=== PATIENT | male | born 1975 | race Caucasian/White ===

== ENCOUNTER 2020-07-20 14:16 | Emergency (ER) | payer OTHER, SELFPAY ==
[2020-07-20 15:03] VITALS: BP 128/70; PULSE 83; RESP 20; TEMP 36.4; O2SAT 96
--- NOTE | 2020-07-20 15:04 | ED.SKABFB ---
HPI - Skin/Abscess/Foreign Bdy General Chief complaint: Skin/Abscess/Foreign Body Stated complaint: lump on L upper leg Time Seen by Provider: 07/20/20 14:22 Source: patient History of Present Illness HPI narrative: this is a 44-year-old gentleman that presents with abscess to the left groin area with an area of erythema surrounding the area is fluctuant tender has had some drainage from the sites with some no history of diabetes no injury is up-to-date with his tetanus with no fever chills no chest pain no shortness of breath. complaint: abscess/boil Onset (ago): day(s) Tetanus up to date: yes Location: LUE ( left hip area) Severity: moderate Severity scale (1-10): 3 Pain Consistency: intermittent Relieving factors: none Exacerbating factors: none Related Data Allergies Allergy/AdvReac Type Severity Reaction Status Date / Time No Known Allergies Allergy Verified 03/26/19 15:58 Review of Systems Review of Systems: All systems reviewed & are unremarkable except as noted in HPI and below PMFSH Past Medical History Medical History Patient denies medical problems Surgical History Surgical History H/O shoulder surgery History of carpal tunnel surgery of right wrist Ulnar nerve abnormality Social History Social History Smoking status: Current every day smoker Alcohol intake: current Substance use: never Gender identity (if verbalized by the patient): Male Exam Const: General: no acute distress Orientation/consciousness: patient oriented x3 HENMT: Head: normal to inspection Eyes: Conjunctivae: conjunctivae normal Pupils: Equal, round and reactive pupils present Direct Ophthalmoscopy: no photophobia Neck: Neck: normal visual inspection Chest: Chest palpation & inspection: normal inspection of the chest Resp: Effort & Inspection: normal respiratory effort Auscultation: clear to auscultation bilaterally Cardio: Rate: regular rate GI: GI Palp: Yes Soft to palpation Skin: Other: fluctuant area upper left thigh anterior 3cm in diameter with an area of erythema Neuro: General: patient oriented x3 and moves all extremities Course Course Emergency Course: area was prepped with Betadine 1% lidocaine administered 11 blade scalpel was used to drain abscess material culture was taken patient was given 1 g IM ceftriaxone is up-to-date with his tetanus vaccine. Procedures Abscess I/D upper extremity: Date of Incision: 07/20/20 Time of Incision: 15:09 Side (if applicable): left Sedation/analgesia: none Local Anesthetic: lidocaine 1% Amount of anesthesia used (mL): 3 Technique: incised with #11 blade Amount of fluid expressed (mL): 5 Irrigation: Yes Packing used?: iodoform I&D Results: Pus and Blood Complications: bleeding Critical Care Time Critical Care Time Critical Care Time: No Discharge Plan Discharge Clinical Impression: Cellulitis Qualifiers: Site of cellulitis: extremity Site of cellulitis of extremity: upper extremity Laterality: left Qualified Code(s): L03.114 - Cellulitis of left upper limb Abscess of skin or subcutaneous tissue Qualifiers: Site of cutaneous abscess: extremity Site of cutaneous abscess of extremity: lower extremity Laterality: left Qualified Code(s): L02.416 - Cutaneous abscess of left lower limb Patient Disposition: Home, Self-Care Condition: Stable Instructions: Antibiotic Form, Cellulitis (ED), Abscess (ED) Additional Instructions: The abscess was some incised and drained and rib in with antibiotic placed and advised to remove after a 24 hours, take medicine as prescribed and follow-up with primary care physician if symptoms persist or worsen. Prescriptions: New amoxicillin-pot clavulanate [Augmentin] 500-1
[2020-07-20] MEDS: cefTRIAXone 1 GM VIAL IM (15:15)
[2020-07-20 15:39] VITALS: BP 124/72; PULSE 80; RESP 20; TEMP 36.7; O2SAT 97
== END 2020-07-20 15:45 | disposition home or self-care (01) ==
PROVIDERS: Emergency Provider Emergency Medicine
DX: L03.114 Cellulitis of left upper limb (principal); L02.416 Cutaneous abscess of left lower limb
CPT/HCPCS: 10061; 87070; 87205; 96372; 99283; J0696

== ENCOUNTER 2020-08-17 09:45 | Outpatient (CLI) | payer OTHER, SELFPAY ==
--- NOTE | ~2020-08-17 | XR_ITS ---
XR abdomen/kub 1V 08/17/2020 10:17 INDICATION: Abdominal pain TECHNIQUE: KUB COMPARISON: None FINDINGS: Bowel gas pattern is normal. There is no evidence of free air, mass, organomegaly, ascites or obstruction. No abnormal calculi are seen. There are pelvic phleboliths. The bones appear intact . Lung bases are unremarkable. IMPRESSION: 1: No acute abdominal abnormality identified. Reviewed, dictated and finalized at location B.
[2020-08-17 09:59] LABS: Basophils Absolute Auto 0.04 K/mm3 (0.00-0.10); Basophils Percent Auto 0.5 % (0.0-1.0); Eosinophils Absolute Auto 0.03 K/mm3 (0.02-0.50); Eosinophils Percent Auto 0.3 % (1.0-6.0); Hematocrit 43.8 % (40.0-54.0); Hemoglobin 14.7 g/dL (14.0-18.0); Immature Granulocyte Absolute 0.02 K/mm3 (0.00-0.00); Immature Granulocyte Percent A 0.2 % (0.0-0.0); Lymphocytes Absolute Auto 2.44 K/mm3 (1.10-4.50); Lymphocytes Percent Auto 27.7 % (18.0-42.0); Mean Corpuscular HGB Conc 33.6 g/dL (32.0-36.0); Mean Corpuscular Hemoglobin 29.9 pg (27.0-31.0); Mean Platelet Volume 9.2 fl (8.7-11.0); Monocytes Absolute Auto 0.63 K/mm3 (0.10-0.90); Monocytes Percent Auto 7.1 % (2.0-11.0); Neutrophils Absolute Auto 5.7 K/mm3 (1.7-7.2); Neutrophils Percent Auto 64.2 % (50.0-70.0); Platelet Count Result 259 K/mm3 (150-420); Red Blood Count 4.92 M/mm3 (4.70-6.10); Red Cell Distribution Width 13.1 % (11.6-14.4); White Blood Count 8.8 K/mm3 (4.8-10.8)
[2020-08-17 10:03] LABS: Add Urine Microscopic? YES; Appearance Urine Clear (Clear); Bilirubin Urine Negative (Negative); Blood Urine 1+ (Negative); Color Urine Yellow (Yellow); Glucose Urine UA Negative (Negative); Ketones Urine 1+ (Negative); Leukocyte Esterase Ur Negative LEU/UL (Negative); Nitrate Urine Negative (Negative); Protein Urine Negative (Negative); Specific Grav Ur 1.025 (1.010-1.020); Urobilinogen Urine 0.2 mg/dL (0.2-1.0)
[2020-08-17 10:11] LABS: WBC Urine 0-3 /hpf (0-3)
[2020-08-17 10:13] LABS: Bacteria Urine Trace /hpf; Squamous Epithelial Cell Urine Few /hpf (Few)
[2020-08-17 10:37] LABS: Alanine Aminotransferase 39 U/L (16-63); Albumin Level 4.2 g/dL (3.4-5.0); Alkaline Phosphatase 79 U/L (46-116); Anion Gap 14 mmol/L (8-16); Aspartate Amino Transferase 20 U/L (15-37); Bilirubin,Total 0.9 mg/dL (0.00-1.00); Blood Urea Nitrogen 16 mg/dL (7-18); Calcium 9.4 mg/dL (8.5-10.1); Carbon Dioxide 23 mmol/L (21-32); Chloride 103 mmol/L (98-108); Cholesterol 193 mg/dL (0-200); Estimated Glomerular Filt Rate > 60; Glucose 100 mg/dL (70-99); HDL Direct 28 mg/dL (40-60); LDL Cholesterol Calculated 148 mg/dL (<130); Osmolality Calculated 291 mOsm/kg (285-295); Potassium 4.2 mmol/L (3.5-5.1); Sodium 140 mmol/L (136-145); Total Protein 7.3 g/dL (6.4-8.2); Triglycerides 87 mg/dL (0-150)
== END 2020-08-17 09:46 | disposition home or self-care (01) ==
LOC: CHSLAB 09:48
PROVIDERS: PCP Nurse Practitioner Family; Visit Provider Nurse Practitioner Family
DX: R10.9 Unspecified abdominal pain (principal); Z00.00 Encounter for general adult medical examination without abnormal findings; K59.00 Constipation, unspecified
CPT/HCPCS: 36415; 74018; 80053; 80061; 81001; 85025

== ENCOUNTER 2020-08-21 08:26 | Outpatient (CLI) | payer OTHER, SELFPAY ==
--- NOTE | ~2020-08-21 | US_ITS ---
EXAMINATION: US abdomen complete EXAM DATE: 08/21/2020 09:03 INDICATION: R10.9 - Unspecified abdominal pain. TECHNIQUE: Multiple grayscale and Doppler images of the complete abdomen were obtained (by a technolo gist who performed the scan) and subsequently reviewed. There is no prior study for comparison. FINDINGS: The abdominal aorta is normal in caliber. Visualized portion IVC is patent. The pancreatic head a nd body are normal in appearance. The pancreatic tail is not visualized. There is echogenic liver parenchyma, hepatic steatosis. There are no focal liver lesions identified. There is no evidence of intrahepatic biliary duct dilation. Portal venous flow was seen in the he patopedal, normal direction and has normal Doppler waveform. Common bile duct measures 4 mm, which is normal. The gallbladder wall is normal in thickness, with ex pected amount of distention. No sonographic evidence of pericholecystic fluid. There is no cholelit hiases. Technologist performing exam reports patient did not demonstrate sonographic Nunez's sign. Please note that this sign is less reliable in patients who have received pain medication. Right kidney: There is normal contour and echogenicity. It measures 11.6 x 4.8 x 5.4 centimeters. There are no focal renal lesions identified. There is no hydronephrosis. Left kidney: There is normal contour and echogenicity. It measures 11.3 x 5.9 x 5.2 centimeters. T here are no focal renal lesions identified. There is no hydronephrosis. The spleen measures 9.4 centimeters and is morphologically normal. IMPRESSION: 1. Hepatic steatosis. Reviewed, dictated and finalized at location B. IMPRESSION: 1. Hepatic steatosis.
== END 2020-08-21 08:27 | disposition home or self-care (01) ==
LOC: CHSIMG 08:27
PROVIDERS: PCP Nurse Practitioner Family; Visit Provider Nurse Practitioner Family
DX: R10.9 Unspecified abdominal pain (principal)
CPT/HCPCS: 76700

== ENCOUNTER 2021-05-10 11:20 | Emergency (ER) | payer SELFPAY | END 2021-05-10 11:30 | disposition left against medical advice (07) | PROVIDERS: Emergency Provider Emergency Medicine | DX: Z04.9 Encounter for examination and observation for unspecified reason (principal) | CPT/HCPCS: 99199 ==

== ENCOUNTER 2021-05-12 10:33 | Emergency (ER) | payer SELFPAY ==
[2021-05-12 10:58] VITALS: BP 125/84; PULSE 74; RESP 16; TEMP 36.2; O2SAT 98
--- NOTE | 2021-05-12 11:01 | ED.URI ---
HPI - URI/Sore Throat General Chief Complaint: Ear Stated Complaint: headache/neck pain,pressure in ears,trouble hearin Time Seen by Provider: 05/12/21 11:01 Source: patient Mode of arrival: ambulatory Limitations: no limitations History of Present Illness HPI Narrative: 45-year-old man with a history of smoking comes in today complaining of 1 week of decreased hearing, ear pain and pressure, neck pain, and headache. Patient states he has had no nasal congestion, cough, sore throat, fever, vomiting or diarrhea. He has had no sick exposures. MD elicited complaint: other (Bilateral ear pain) Onset (ago): week(s) (1) Consistency: constant Severity: moderate Able to tolerate fluids by mouth: Yes Exacerbating factors: swallowing Relieving factors: nothing Associated symptoms: headache, stiff neck and ear pain Treatments prior to arrival: ibuprofen Related Data Allergies Allergy/AdvReac Type Severity Reaction Status Date / Time No Known Allergies Allergy Verified 05/12/21 11:03 Review of Systems Review of Systems: All systems reviewed & are unremarkable except as noted in HPI and below Constitutional: Constitutional: Denies chills, Denies fever(s) and Denies weakness Eyes: Eyes: Denies change in vision and Denies photophobia ENT: Denies dysphagia, Denies nasal congestion and Reports sore throat Cardiovascular: Cardiovascular: Denies chest pain and Denies radiating jaw, neck or arm pain Respiratory: Respiratory: Denies cough, Denies dyspnea and Denies wheezing Gastrointestinal: Gastrointestinal: Denies abdominal pain, Denies diarrhea, Denies nausea and Denies vomiting Musculoskeletal: Musculoskeletal: Denies back pain Integumentary/Breasts: Skin/Breast: Denies pruritus, Denies erythema and Denies rash Neurologic: Reports headache(s), Denies focal weakness and Denies numbness Allergic/Immunologic: Allergic/Immunologic: Denies throat swelling and Denies tongue swelling PMFSH Past Medical History Medical History Patient denies medical problems Surgical History Surgical History H/O shoulder surgery History of carpal tunnel surgery of right wrist Ulnar nerve abnormality Social History Social History (Updated 05/12/21 @ 11:10 by Paco Hwang MD) Smoking status: Current every day smoker Alcohol intake: current Substance use type: marijuana Living arrangements: with family Gender identity (if verbalized by the patient): Male Exam Const: General: healthy appearing and alert Orientation/consciousness: patient oriented x3 Limitations: no limitations Other: Moderate acute distress. HENMT: Head: normal to inspection Ears: external ears normal, EAC's normal and TM abnormal wth effusion purulent bilateral Face and sinus: normal facial exam Mouth: Yes moist mucous membranes Throat: posterior oropharynx normal Eyes: Conjunctivae: conjunctivae normal Pupils: Equal, round and reactive pupils present EOM: EOMs intact bilaterally Resp: Effort & Inspection: normal respiratory effort and not labored Auscultation: clear to auscultation bilaterally, no rales, no rhonchi and no wheezes Cardio: Rate: regular rate Rhythm: regular rhythm Heart sounds: no murmurs Skin: General skin exam: normal color, no jaundice and no pallor Rashes: no rashes Neuro: General: patient oriented x3, moves all extremities, no focal motor deficits and CN's II-XI intact bilaterally Speech: normal speech Gait exam (Neuro): Normal gait present Extrem: General: normal to inspection and no clubbing, cyanosis or edema Psych: Appearance: grossly normal and well kempt Mental Status: mental status grossly normal Affect: normal affect Attitude: cooperative Discharge Plan Discharge Clinical Impression: Bilateral acute suppurative otitis media Qualifiers: Recurrence: non-recurrent Spontaneous tympanic membrane ruptur
[2021-05-12 11:23] VITALS: BP 125/84; PULSE 74; RESP 16; TEMP 36.2; O2SAT 98
== END 2021-05-12 11:25 | disposition home or self-care (01) ==
PROVIDERS: Emergency Provider Emergency Medicine
DX: H66.003 Acute suppurative otitis media without spontaneous rupture of ear drum, bilateral (principal)
CPT/HCPCS: 99283

== ENCOUNTER 2021-08-02 21:57 | Emergency (ER) | payer SELFPAY ==
--- NOTE | ~2021-08-02 | CT_ITS ---
EXAMINATION: CT brain wo con DATE: 08/02/2021 22:12 INDICATION: Headache with slurred speech TECHNIQUE: Computed tomography (CT) of the head was performed without intravenous contrast. The dose- length product was 605.33 mGy-cm. Automated exposure control and iterative reconstruction technique w ere employed. COMPARISON: None FINDINGS: There is a focal hypodensity of the right frontal lobe, suspicious for age indeterminate in farction. Brain parenchymal volume is normal for age. No ventriculomegaly or midline shift. Basilar c isterns are patent. There is mild mucosal thickening of the maxillary and ethmoid sinuses. Mastoids a re pneumatized. No depressed skull fractures. Midline sagittal images demonstrate a normal corpus rosita losum and craniovertebral junction. IMPRESSION: 1. Focal asymmetric lentiform hypodensity right frontal lobe, suspicious for age indeterminate infarc tion. No significant mass effect or hemorrhage. Consider correlation with MRI. As per stroke protocol, I called these results to emergency room, discussed with Dr. Antony de la cruz MD at 08/02/2021 22:17 CDT. Reviewed, dictated and finalized at location A. IMPRESSION: 1. Focal asymmetric lentiform hypodensity right frontal lobe, suspicious for ag e indeterminate infarction. No significant mass effect or hemorrhage. Consider correlation with MRI. As per stroke protocol, I called these results to emergency room, discussed wit h Dr. Antony Dover MD at 08/02/2021 22:17 CDT.
--- NOTE | 2021-08-02 22:09 | ECG_ITS ---
Measurements Intervals [place] Rate: 80 P: 42 NV: 135 QRS: 78 QRSD: 103 T: 20 QT: 338 QTc: 391 Interpretive Statements SINUS RHYTHM WITH MARKED SINUS ARRHYTHMIA MINIMAL Q WAVES- INF/LAT LEADS BASELINE ARTIFACT- II, III, AVF, V3, V6 BORDERLINE ECG Electronically Signed On 08-03-2021 6:05:55 CDT by Gunnar Hatch D.O.
[2021-08-02 22:10] VITALS: BP 153/103; PULSE 81; PULSE 82; RESP 18; RESP 20; TEMP 36.7; O2SAT 98
[2021-08-02 22:15] VITALS: PULSE 82
[2021-08-02 22:17] LABS: Basophils Absolute Auto 0.06 K/mm3 (0.00-0.10); Basophils Percent Auto 0.5 % (0.0-1.0); Eosinophils Absolute Auto 0.17 K/mm3 (0.02-0.50); Eosinophils Percent Auto 1.5 % (1.0-6.0); Hematocrit 44.3 % (40.0-54.0); Immature Granulocyte Absolute 0.04 K/mm3 (0.00-0.00); Immature Granulocyte Percent A 0.4 % (0.0-0.0); Lymphocytes Absolute Auto 3.42 K/mm3 (1.10-4.50); Mean Corpuscular HGB Conc 33.9 g/dL (32.0-36.0); Mean Corpuscular Hemoglobin 30.5 pg (27.0-31.0); Mean Corpuscular Volume 90.2 fL (78.0-102.0); Mean Platelet Volume 9.2 fl (8.7-11.0); Monocytes Absolute Auto 0.76 K/mm3 (0.10-0.90); Monocytes Percent Auto 6.7 % (2.0-11.0); Neutrophils Absolute Auto 6.9 K/mm3 (1.7-7.2); Neutrophils Percent Auto 60.9 % (50.0-70.0); Platelet Count Result 282 K/mm3 (150-420); Red Blood Count 4.91 M/mm3 (4.70-6.10); Red Cell Distribution Width 13.2 % (11.6-14.4); White Blood Count 11.4 K/mm3 (4.8-10.8)
--- NOTE | 2021-08-02 22:30 | PC.NURSE ---
Stat stroke protocol initiated on pt arrival. Pt wants transfer to stroke center at [facility]. Paperwork initiated.
[2021-08-02 22:31] LABS: INR 0.9; Partial Thromboplastin Time 26.3 SEC (23.90-30.70); Prothrombin Time 9.8 Seconds (9.50-12.10)
--- NOTE | 2021-08-02 22:32 | ED.NEUROSD ---
HPI - Neuro Symptoms/Deficit General Chief Complaint: Suspected CVA Stated Complaint: sharp pain in head, slurring words Source: patient and family Mode of arrival: ambulatory Limitations: physical limitation History of Present Illness Onset (ago): day(s) Time: 22:33 Last Observed Normal: 15:00 Location: speech, left face and left leg History of same: No Severity: moderate Quality: weak Relieving factors: none Exacerbating factors: none Context: sudden onset Associated symptoms: headaches Treatments Prior to Arrival: none Related Data Home Medications Medication Instructions Recorded Confirmed No Home Medications 08/02/21 08/02/21 Allergies Allergy/AdvReac Type Severity Reaction Status Date / Time No Known Allergies Allergy Verified 05/12/21 11:03 Review of Systems Review of Systems: All systems reviewed & are unremarkable except as noted in HPI and below PMFSH Past Medical History Medical History Hyperlipidemia Nicotine dependence Patient denies medical problems Surgical History Surgical History H/O shoulder surgery History of carpal tunnel surgery of right wrist Ulnar nerve abnormality Social History Social History Smoking status: Current every day smoker Alcohol intake: current Substance use type: marijuana Gender identity (if verbalized by the patient): Male Exam Const: General: cooperative, healthy appearing, comfortable, no acute distress, well developed, alert, awake and Physically active HENMT: Head: normal to inspection Ears: hearing grossly normal bilaterally General nose exam: Normal external nose present Nose image: 1. left facial droop Mouth: Yes Normal oral and palatal mucosa present Teeth and gingiva: dentition normal Throat: posterior oropharynx normal Eyes: General: appearance normal, both eyes and all related structures Visual Jiang: normal visual jiang by confrontation Alignment and Position: alignment normal Eyelids: eyelids normal Conjunctivae: conjunctivae normal Sclera: sclerae normal Pupils: Equal, round and reactive pupils present Neck: Neck: normal visual inspection, full ROM, no lymphadenopathy and no meningeal signs Lymphatic: no lymphadenopathy noted Chest: Chest palpation & inspection: normal inspection of the chest and normal palpation of entire chest wall Resp: Effort & Inspection: normal respiratory effort and able to speak in complete sentences Auscultation: clear to auscultation bilaterally Cardio: Jugular venous distension: no JVD Palpation: normal PMI Rate: regular rate Rhythm: regular rhythm Heart sounds: S1 normal heart sound present and S2 normal heart sound present GI: Inspection: normal to inspection Percussion: Yes normal to percussion Back/Spine/Pelvis: Back: no CVA tenderness Skin: General skin exam: normal color and no rashes or lesions noted Lesions: no lesions Rashes: no rashes Neuro: General: oriented to person, oriented to place, oriented to time, Normal light touch and pain sensation and no meningeal signs Cranial nerves: Yes Facial sensation intact/muscles of mastication intact, Yes Nystagmus not present, Yes facial symmetry and Yes Midline tongue present Cognition (Neuro): normal cognition Speech: normal speech Gait exam (Neuro): Ataxic gait present Motor exam (neuro): Pronator motor function not present and Normal motor muscle tone present throughout Sensory Exam: normal sensation Coordination: [id number] test normal and other ( [id number] abnormal on the left) Pupils: Normal pupillary reactivity/response: bilateral Extrem: General: normal to inspection, full ROM and capillary refill normal Right lower extremity: normal to inspection Left lower extremity: full ROM ( decreased range of motion) Psych: Appearance: well kempt and dis
[2021-08-02 22:35] LABS: Alanine Aminotransferase 33 U/L (16-63); Albumin Level 3.7 g/dL (3.4-5.0); Alkaline Phosphatase 70 U/L (46-116); Anion Gap 8 mmol/L (8-16); Aspartate Amino Transferase 16 U/L (15-37); Bilirubin,Total 0.3 mg/dL (0.00-1.00); Blood Urea Nitrogen 19 mg/dL (7-18); Carbon Dioxide 25 mmol/L (21-32); Chloride 104 mmol/L (98-108); Estimated Glomerular Filt Rate > 60; Glucose 115 mg/dL (70-99); Osmolality Calculated 287 mOsm/kg (285-295); Potassium 4.3 mmol/L (3.5-5.1); Sodium 137 mmol/L (136-145); Total Protein 7.4 g/dL (6.4-8.2); Troponin I 5.6 ng/L (0.00-60.4)
[2021-08-02 22:45] VITALS: BP 123/84; PULSE 80; RESP 20; O2SAT 97
--- NOTE | 2021-08-02 22:53 | PC.NURSE ---
Call placed to [facility] via coordinator at [phone]. Awaiting call back from neuro home care aide at [facility].
--- NOTE | 2021-08-02 22:55 | PC.NURSE ---
Call back to [facility] for update, states pt is in line and will call back from neuro Dr when available. Pt. last normal over 24 hrs. ago, pt stable at this time. VSS.
--- NOTE | 2021-08-02 22:58 | PC.NURSE ---
Call back from [facility] Dr Garcia and Dr Boyer, speaking to Dr Dover. Dr boyer accepts for transfer. Will await call back from [facility] bed for placement.
[2021-08-02] MEDS: ASPIRIN 81 MG CHEWABLE TABLET 324 MG PO (23:06)
[2021-08-02 23:16] VITALS: BP 147/92; PULSE 87; RESP 18; O2SAT 97
[2021-08-03 00:06] VITALS: BP 113/63; PULSE 76; RESP 20; O2SAT 97
[2021-08-03 01:05] VITALS: BP 144/89; PULSE 80; RESP 20; O2SAT 97
--- NOTE | 2021-08-03 01:29 | PC.NURSE ---
Pt up in room, talking on cell phone, no changes, reports feeling better since given ASA. VSS, monitor SR. Awaiting call back from [facility] for bed assignment. Pt given blanket, resting at this time.
[2021-08-03 01:46] VITALS: BP 144/89; PULSE 80; RESP 20; TEMP 36.6; O2SAT 97
--- NOTE | 2021-08-03 01:48 | PC.NURSE ---
Called report to Giovany at [facility], [facility] paged for pt transfer.
[2021-08-03 02:22] LABS: SARS-CoV-2 Ag Negative (Negative)
== END 2021-08-03 02:18 | disposition short-term general hospital (02) ==
PROVIDERS: Emergency Provider Emergency Medicine
DX: I63.9 Cerebral infarction, unspecified (principal); Z20.822 Contact with and (suspected) exposure to COVID-19
CPT/HCPCS: 36415; 70450; 80053; 82948; 84484; 85025; 85610; 85730; 87426; 93005; 99285; A9270; C9803

== ENCOUNTER 2022-09-25 10:27 | Outpatient (CLI) | payer BC, SELFPAY ==
--- NOTE | ~2022-09-25 | XR_ITS ---
Lumbosacral Spine: AP and lateral views Clinical History: Pain Findings: The normal lordotic curve is maintained. The vertebral bodies and posterior elements are i ntact. The intervertebral disc spaces are preserved. Mild facet joint degenerative changes are prese nt. The sacroiliac joints are normally outlined. Impression: Mild facet joint degenerative changes in the lumbar spine. Reviewed, dictated and finalized at location . Impression: Mild facet joint degenerative changes in the lumbar spine.
--- NOTE | ~2022-09-25 | XR_ITS ---
AP and oblique views of the SI joints CLINICAL HISTORY: Chronic pain FINDINGS: Bilateral SI joints and bilateral hip joints appear unremarkable. No degenerative, erosive, or sclerotic change seen. Soft tissues are unremarkable. IMPRESSION: No significant abnormality seen. Reviewed, dictated and finalized at [facility].
--- NOTE | ~2022-09-25 | XR_ITS ---
Left ankle Technique: AP, oblique, and lateral views were obtained. Clinical History: Pain Findings: No acute fracture or dislocation is seen. Osseous alignment is anatomic. Ankle mortise and other visualized joint spaces are preserved. Soft tissues are otherwise unremarkable. Impression: Unremarkable left ankle. Reviewed, dictated and finalized at location . Impression: Unremarkable left ankle.
== END 2022-09-25 10:28 | disposition home or self-care (01) ==
DX: M54.50 Low back pain, unspecified (principal); M79.672 Pain in left foot
CPT/HCPCS: 72100; 72202; 73610; 73630

== ENCOUNTER 2022-12-31 00:53 | Emergency (ER) | payer BC, SELFPAY ==
[2022-12-31] VITALS (11 sets, daily range): BP systolic 122–144; BP diastolic 60–98; PULSE 57–70; RESP 14–20; TEMP 36.6–37.2; O2SAT 96–99
--- NOTE | ~2022-12-31 | CT_ITS ---
Clinical Indication: Left hilar prominence, elevated d-dimer CT Scan of the Chest with Contrast: Technique: Contiguous sections were acquired throughout the chest after intravenous administration of 100 cc of Omnipaque 350. Dose reduction technique was used on this scan by utilizing automated expos ure control and iterative reconstruction technique. The dose-length product (DLP) was 1205.54 mGy-cm. Findings: There is no evidence of any significant mediastinal, hilar or axillary lymphadenopathy. There is no f illing defect in the pulmonary arterial tree to suggest pulmonary embolus. There is no evidence of ao rtic dissection or aneurysm. There is no evidence of pleural or pericardial effusion. The lungs are clear. No pulmonary nodules or infiltrates are noted. Images through the upper abdomen reveal no abnormalities. Impression: No evidence of pulmonary embolus, aortic dissection, or aortic aneurysm. Clear lungs. Reviewed, dictated and finalized at [facility]. Impression: No evidence of pulmonary embolus, aortic dissection, or aortic aneurysm. Clear lungs.
--- NOTE | ~2022-12-31 | XR_ITS ---
Clinical Indication: Chest pain PA and lateral views of the chest: Comparison: 04/18/2014 Findings: The lungs are clear, without evidence of focal consolidation or pleural effusion. Cardiome diastinal silhouette is within normal limits. Bones and soft tissues are unremarkable. Impression: Normal chest. Reviewed, dictated and finalized at location . Impression: Normal chest.
--- NOTE | 2022-12-31 00:57 | ECG_ITS ---
Measurements Intervals [place] Rate: 61 P: 28 WV: 136 QRS: 64 QRSD: 97 T: 34 QT: 387 QTc: 393 Interpretive Statements SINUS RHYTHM COMPARED TO ECG 08/02/2021 22:25:37 NO SIGNIFICANT CHANGES Electronically Signed On 12-31-2022 20:08:42 CDT by Sulma Rhodes M.D.
--- NOTE | 2022-12-31 01:45 | ED.GENADULT ---
HPI - General Adult General Chief complaint: Unspecified Stated complaint: Dizzy Time Seen by Provider: 12/31/22 01:15 History of Present Illness HPI narrative: The patient is a 47-year-old male with history of hyperlipidemia, cigarette use, obesity. Does not take any medications on regular basis. Has had a left lower posterior toothache for the last 3 days that radiates to the left ear. Tonight, while at work, he had an episode of dizziness, lightheadedness, nausea, associated with him feeling tired. He subsequently developed discomfort in the left upper chest radiating to the left arm with a dull ache. Did have tingling in the left fingers. Symptoms persist. No abdominal pain. No diaphoresis. No emesis. No previous similar history. No pleuritic component to the discomfort. Related Data Home Medications Medication Instructions Recorded Confirmed No Home Medications 08/02/21 12/31/22 Allergies Allergy/AdvReac Type Severity Reaction Status Date / Time No Known Allergies Allergy Verified 05/12/21 11:03 Review of Systems Review of Systems: All systems reviewed & are unremarkable except as noted in HPI and below Constitutional: Constitutional: Denies chills, Denies excessive sweating, Denies fatigue, Denies fever(s), Denies headache(s) and Denies weakness Eyes: Eyes: Denies change in vision and Denies photophobia ENT: Denies dysphagia, Denies dizziness, Denies headache(s), Denies lip swelling, Denies nasal congestion, Denies sore throat and Denies tongue swelling Cardiovascular: Cardiovascular: Reports chest pain, Denies syncope, Denies rapid heart rate and Denies dyspnea Respiratory: Respiratory: Denies cough, Denies dyspnea and Denies wheezing Gastrointestinal: Gastrointestinal: Denies abdominal pain, Denies constipation, Denies dysphagia, Denies diarrhea, Denies nausea and Denies vomiting Genitourinary: Genitourinary: Denies hematuria, Denies dysuria, Denies urinary frequency and Denies urinary urgency Musculoskeletal: Musculoskeletal: Denies back pain, Denies myalgias, Denies arthralgias, Denies joint swelling and Reports tingling (left fingers) Integumentary/Breasts: Skin/Breast: Denies pruritus, Denies erythema and Denies rash Neurologic: Denies confusion, Denies dizziness, Denies syncope, Denies headache(s), Denies focal weakness, Denies numbness and Denies weakness Psychiatric: Psychiatric: Denies anxiety and Denies confusion Endocrine: Endocrine: Denies excessive sweating and Denies fatigue Hematologic/Lymphatic: Hematologic/Lymphatic: Denies easy bleeding and Denies easy bruising Allergic/Immunologic: Allergic/Immunologic: Denies lip swelling, Denies tongue swelling and Denies wheezing PMFSH Past Medical History Medical History Hyperlipidemia Nicotine dependence Patient denies medical problems Surgical History Surgical History H/O shoulder surgery History of carpal tunnel surgery of right wrist Ulnar nerve abnormality Social History Social History Smoking status: Current every day smoker Alcohol intake: current Substance use type: marijuana Living arrangements: with family Gender identity (if verbalized by the patient): Male Exam Const: General: healthy appearing, no acute distress, alert and well nourished Nutritional Appearance: well nourished Orientation/consciousness: patient oriented x3 Limitations: no limitations Other: obese, 111 kg HENMT: Head: normal to inspection Ears: external ears normal, TM normal on the right, TM normal on the left and EAC's normal Face/Nose/Sinus: normal facial exam Face and sinus: normal facial exam Mouth: Yes moist mucous membranes Teeth and gingiva: caries ( In the left posterior molar, with dental tenderness) and poor dentition ( multiple pulled teeth.) Throat: posteri
[2022-12-31] MEDS: AMOXICILLIN 500 MG CAPSULE PO (02:00)
[2022-12-31] MEDS: ACETAMINOPHEN 500 MG TABLET 1000 MG PO (02:00)
[2022-12-31] MEDS: IBUPROFEN 400 MG TABLET 800 MG PO (02:00)
[2022-12-31 02:08] LABS: Basophils Absolute Auto 0.04 K/mm3 (0.00-0.10); Basophils Percent Auto 0.5 % (0.0-1.0); Eosinophils Absolute Auto 0.14 K/mm3 (0.02-0.50); Eosinophils Percent Auto 1.7 % (1.0-6.0); Hematocrit 38.9 % (40.0-54.0); Hemoglobin 13.2 g/dL (14.0-18.0); Immature Granulocyte Absolute 0.03 K/mm3 (0.00-0.00); Immature Granulocyte Percent A 0.4 % (0.0-0.0); Lymphocytes Absolute Auto 2.62 K/mm3 (1.10-4.50); Lymphocytes Percent Auto 30.9 % (18.0-42.0); Mean Corpuscular HGB Conc 33.9 g/dL (32.0-36.0); Mean Corpuscular Volume 91.3 fL (78.0-102.0); Mean Platelet Volume 9.3 fl (8.7-11.0); Monocytes Absolute Auto 0.58 K/mm3 (0.10-0.90); Monocytes Percent Auto 6.8 % (2.0-11.0); Neutrophils Absolute Auto 5.1 K/mm3 (1.7-7.2); Neutrophils Percent Auto 59.7 % (50.0-70.0); Platelet Count Result 205 K/mm3 (150-420); Red Blood Count 4.26 M/mm3 (4.70-6.10); Red Cell Distribution Width 13.2 % (11.6-14.4); White Blood Count 8.5 K/mm3 (4.8-10.8)
[2022-12-31 02:26] LABS: Alanine Aminotransferase 40 U/L (16-63); Albumin Level 3.4 g/dL (3.4-5.0); Alkaline Phosphatase 63 U/L (46-116); Anion Gap 8 mmol/L (8-16); Aspartate Amino Transferase 20 U/L (15-37); Bilirubin,Total 0.8 mg/dL (0.00-1.00); Blood Urea Nitrogen 21 mg/dL (7-18); Calcium 8.7 mg/dL (8.5-10.1); Carbon Dioxide 28 mmol/L (21-32); Chloride 105 mmol/L (98-108); Estimated CRCL calculation 122 ml/min; Estimated Glomerular Filt Rate > 60; Glucose 99 mg/dL (70-99); Osmolality Calculated 295 mOsm/kg (285-295); Potassium 4.2 mmol/L (3.5-5.1); Sodium 141 mmol/L (136-145); Total Protein 6.7 g/dL (6.4-8.2); Troponin I 5.5 ng/L (0.00-60.4)
[2022-12-31 02:38] LABS: D Dimer 0.55 mg/L (0.19-0.50)
[2022-12-31 04:50] LABS: Troponin I 6.2 ng/L (0.00-60.4)
== END 2022-12-31 06:47 | disposition home or self-care (01) ==
PROVIDERS: Emergency Provider Emergency Medicine
DX: R07.9 Chest pain, unspecified (principal); E78.5 Hyperlipidemia, unspecified; F17.210 Nicotine dependence, cigarettes, uncomplicated
CPT/HCPCS: 36415; 71046; 71275; 80053; 84484; 85025; 85380; 93005; 99284; A9270; Q9967